=== PATIENT | male | born 1995 | race Caucasian/White ===

== ENCOUNTER 2024-05-12 15:13 | Emergency (ER) | payer MEDICAID ==
[~2024-05-12] VITALS: Ht 177.8 cm; Wt 64.0 kg
[2024-05-12 16:14] VITALS: BP 141/93; PULSE 109; RESP 16; O2SAT 100
[2024-05-12] MEDS ORDERED: TIZA4CAP PO (16:15)
[2024-05-12 16:30] VITALS: TEMP 98.3
== END 2024-05-12 16:47 | disposition home or self-care (01) ==
LOC: ER 15:15
DX: M54.50 Low back pain, unspecified (principal); M25.512 Pain in left shoulder
CPT/HCPCS: 99283